=== PATIENT | male | born 1965 | race Caucasian/White ===

== ENCOUNTER 2018-06-20 19:52 | Emergency (ER) | payer MEDICAID ==
[2018-06-20 20:05] VITALS: RESP 18
--- NOTE | 2018-06-20 21:08 | ED PDOC ---
HPI: Chest Pain Time Seen by Provider: 06/20/18 20:49 Chief Complaint (Nursing): Chest Pain Chief Complaint (Provider): epigastric/chest pain Additional Complaint(s): 52 y/o M with hx of PUD, TIA presents with epigastric pain that began this evening after eating. Pt states that he was in his USOH until this evening when he suddenly developed epigastric pain and then began having Left sided rib/pain that was worse with deep inspiration, cough and bending forward. He had some SOB as it was too painful to take a deep breath. Denies radiation to arm/jaw/back, dizziness, palpitations, vomiting, diarrhea, fever. Past Medical History Vital Signs: Last Vital Signs Temp 98.7 F 06/20/18 20:01 Pulse 92 H 06/20/18 20:01 Resp 18 06/20/18 20:01 BP 136/87 06/20/18 20:01 Pulse Ox 99 06/20/18 20:01 - Medical History PMH: Denies: Chronic Kidney Disease - Surgical History Surgical History: Cholecystectomy (Laparoscopic 2009) - Family History Family History: States: Unknown Family Hx - Immunization History Hx Tetanus Toxoid Vaccination: No Hx Influenza Vaccination: No Hx Pneumococcal Vaccination: No - Home Medications Home Medications: Ambulatory Orders Medication Instructions Recorded Docusate Sodium [Colace] 100 mg PO BID #60 sgl 08/03/14 Magnesium Citrate [[facility] 300 ml PO ONCE #1 bottle 08/03/14 Pharmacy Magnesium Citrate] Docusate Sodium [Colace] 100 mg PO BID #20 sgl 05/30/15 Famotidine [Pepcid] 20 mg PO HS #20 tab 05/30/15 Ibuprofen [Motrin] 600 mg PO Q6H #20 tab 05/30/15 Tramadol Hydrochloride [Tramadol] 50 mg PO Q4H PRN #10 tab 05/30/15 Ibuprofen [Motrin Tab] 800 mg PO TID PRN #15 tab 04/06/17 Acetaminophen/Butalbital/Caf 1 tab PO TID PRN #20 tab 12/22/17 [Fioricet] Acetaminophen [Tylenol 325mg tab] 650 mg PO Q6 PRN 7 Days tab 06/21/18 Famotidine [Pepcid] 40 mg PO HS 7 Days tab 06/21/18 - Allergies Allergies/Adverse Reactions: Allergies Allergy/AdvReac Type Severity Reaction Status Date / Time No Known Allergies Allergy Verified 09/17/14 22:53 - Laboratory Results Result Diagrams: 06/20/18 21:00 06/20/18 21:00 - ECG O2 Sat by Pulse Oximetry: 99 Medical Decision Making Medical Decision Making: EKG CBC, CMP Pepcid, Tylenol 22:00: Re-evaluation: epigastric pain unchanged. Given Maalox and Lidocaine viscous. 00:30: re-evaluated, chest pain and epigastric pain mildly improved from 9/10 to 7/10. CT abd/pelvis w/ PO and IV contrast ordered CT A/P: Small sliding hiatal hernia. The liver is of uniform attenuation without mass or defect. There is no intra or extrahepatic biliary ductal dilatation. The spleen is normal. The gallbladder is within normal limits. The pancreas is of normal contour and attenuation characteristics. There is no evidence of adrenal mass. Both kidneys demonstrate prompt and equal nephrograms. The kidneys are normal in size, shape and configuration. There is no evidence of renal or ureteral mass. No renal or ureteral calculi are identified. There is no hydroureter or hydronephrosis. Uncomplicated colonic diverticulosis. No evidence for appendicitis. There is no bowel wall thickening. No evidence for small or large bowel obstruction. There is no evidence of abdominal ascites or lymphadenopathy. There is no evidence of intrinsic or extrinsic bladder mass. There is no pelvic ascites or lymphadenopathy. Images of the lung bases show no evidence of pleural or parenchymal mass. There are no pleural effusions. The bony structures are free of lytic or blastic lesions. IMPRESSION: Small sliding hiatal hernia. Unchanged. No evidence of acute abdominal or pelvic pathology. Uncomplicated colonic diverticulosis. 4:00am: re-evaluated: epigastric and chest pain have improved significantly although still present. Pt stable for d/c home with return instructions and prescription for Pepcid. Disposition - Clinical Impression Clinical Impression: Chest wall pain, Gastritis - Patient ED Disposition Is Patient to be Admitted: No Counseled Patient/Family Regarding: Studies Performed, Diagnosis, Need For Followup, Rx Given - Disposition Referrals: Kartik Azar MD [Staff Provider] - Disposition: Routine/Home Disposition Time: 04:30 Condition: STABLE Additional Instructions: Follow-up with primary care doctor re: further evaluation of epigastric pain. Take Tylenol for musculoskeletal pain. Take Pepcid nightly and Tums as needed for indigestion/abdominal. Return to ER if you develop worsening abdominal pain, dizziness, shortness of breath. Avoid acidic or spicy foods. Prescriptions: Acetaminophen [Tylenol 325mg tab] 650 mg PO Q6 PRN 7 Days tab PRN Reason: Pain, Moderate (4-7) Famotidine [Pepcid] 40 mg PO HS 7 Days tab Instructions: Costochondritis (DC), Gastritis (DC) Forms: [employer]EX Card (Kiswahili) Print Language: SAMMARINESE
[2018-06-20 21:37] LABS: BASO # 0.1 K/uL (0.0-0.2); EOS # 0.3 K/uL (0.0-0.7); EOS % 2.7 % (0.0-4.0); HEMOGLOBIN 13.2 g/dL (12.0-18.0); LYMPH # 2.7 K/uL (1.0-4.3); LYMPH % 28.7 % (20.0-40.0); MEAN CELL VOLUME 80.2 fl (80.0-94.0); MEAN CORPUSCULAR HEMOGLOBIN 26.5 pg (27.0-31.0); MEAN PLATELET VOLUME 7.8 fl (7.2-11.7); MONO # 0.5 K/uL (0.0-0.8); MONO % 5.4 % (0.0-10.0); NEUT # 5.7 K/uL (1.8-7.0); NEUT % 62.2 % (50.0-75.0); NRBC % 0.1 % (0.0-0.0); RBC 4.98 Mil/uL (4.40-5.90); RED CELL DISTRIBUTION WIDTH 14.9 % (11.5-14.5); WHITE BLOOD COUNT 9.2 K/uL (4.8-10.8)
[2018-06-20 21:46] LABS: ALB/GLOB RATIO 1.1 (1.0-2.1); ALBUMIN 4.1 g/dL (3.5-5.0); ALT/SGPT 46 U/L (21-72); AMYLASE 91 U/L (30-110); AST/SGOT 29 U/L (17-59); BLOOD UREA NITROGEN 14 mg/dl (9-20); CALCIUM 9.2 mg/dL (8.4-10.2); GFR NON-AFRICAN AMERICAN > 60; LIPASE 42 U/L (23-300)
[2018-06-20] MEDS ORDERED: Alum-Mag Hydrox-Simethicone Susp (30 mL) PO ONE (22:56)
[2018-06-21] MEDS ORDERED: Iohexol 240 (50 ml) PO ONE (00:33)
[2018-06-21] MEDS ORDERED: Iohexol 240 (50 ml) ONE (01:10)
[2018-06-21] MEDS ORDERED: Iohexol 300 100 ML IJ ONE (02:45)
[2018-06-21] MEDS ORDERED: Sodium Chloride 0.9% 50 ML IV ONE (02:45)
[2018-06-21 04:57] VITALS: BP 121/84; PULSE 73; TEMP 97.9; O2SAT 95
--- NOTE | 2018-06-21 09:10 | RAD ---
Date of service: 06/20/2018 HISTORY: shortness of breath, cough COMPARISON: 09/18/2014 TECHNIQUE: Chest PA and lateral FINDINGS: LUNGS: No active pulmonary disease. PLEURA: No significant pleural effusion identified. No pneumothorax apparent. CARDIOVASCULAR: There is absence of aortic atherosclerotic calcification on x-ray. Probable top-normal heart size. No significant appearing pulmonary venous congestion. OSSEOUS STRUCTURES: Thoracic spondylosis. VISUALIZED UPPER ABDOMEN: Normal. OTHER FINDINGS: None. IMPRESSION: No active disease. No interval pathology noted.
--- NOTE | 2018-06-21 13:49 | CT ---
Date of service: 06/21/2018 PROCEDURE: CT Abdomen and Pelvis with contrast HISTORY: intractable epigastric pain COMPARISON: None available. TECHNIQUE: CT scan of the abdomen and pelvis was performed after administration of intravenous contrast. Oral contrast was administered. Coronal and sagittal reformatted images were obtained. Contrast dose: 95 mL Omnipaque 300 Radiation dose: Total exam DLP = 800.22 mGy-cm. This CT exam was performed using one or more of the following dose reduction techniques: Automated exposure control, adjustment of the mA and/or kV according to patient size, and/or use of iterative reconstruction technique. FINDINGS: LOWER THORAX: The visualized lungs are clear. LIVER: Mild hepatomegaly and fatty liver. Homogeneous enhancement. No gross lesion or ductal dilatation. GALLBLADDER AND BILE DUCTS: Well distended. No calcified gallstones, wall thickening or pericholecystic fluid. PANCREAS: Normal in size with homogeneous enhancement. No gross lesion or ductal dilatation. SPLEEN: Normal in size and appearance. ADRENALS: No discrete nodule. KIDNEYS AND URETERS: Normal in size with homogeneous enhancement. No hydronephrosis. No solid mass. VASCULATURE: No aortic aneurysm. No aortic atherosclerotic calcifications. BOWEL: Evaluation of the bowel is limited in the absence of oral contrast. The small bowel loops are normal in caliber. Left colonic diverticulosis without CT evidence for acute diverticulitis.. No bowel wall thickening or obstruction. APPENDIX: No inflammatory changes in the right lower quadrant. PERITONEUM: No free fluid. No free air. LYMPH NODES: No enlarged lymph nodes. BLADDER: Well distended and normal in appearance. REPRODUCTIVE: The prostate gland is normal in size. BONES: No acute fracture. Within normal limits for the patient's age. OTHER FINDINGS: There are bilateral small fat containing inguinal hernias. There is a small sliding hiatal there contrast in the distal esophagus suggestive of reflux. There is mild circumferential mural thickening in the gastric pylorus and duodenal cap. IMPRESSION: No acute abdominal or pelvic abnormality. Small sliding hiatal hernia and gastroesophageal reflux. Apparent mild mural thickening in the gastric pylorus and duodenal cap is nonspecific and could be related to underdistention however nonspecific gastritis/duodenitis is also a consideration. If clinically indicated, correlation with EGD may be performed. Left colonic diverticulosis without CT evidence for acute diverticulitis. A preliminary report was provided by [email or web address].
--- NOTE | 2018-06-22 00:07 | CARD ---
APPROVED REPORT Date of service: 06/20/2018 EKG Measurement Heart [id number] <Conclusion> Normal sinus rhythm Normal ECG
== END 2018-06-21 04:58 | disposition home or self-care (01) ==
LOC: H.ER 19:52
DX: R07.89 Other chest pain (principal); K29.70 Gastritis, unspecified, without bleeding; K44.9 Diaphragmatic hernia without obstruction or gangrene; K57.30 Diverticulosis of large intestine without perforation or abscess without bleeding; Z86.73 Personal history of transient ischemic attack (TIA), and cerebral infarction without residual deficits
CPT/HCPCS: 71046; 74177; 80053; 82150; 83690; 84484; 85025; 93005; 96372; 99285; J1885; Q9966; Q9967